=== PATIENT | male | born 1935 | race Caucasian/White ===

== ENCOUNTER 2017-12-21 11:36 | Emergency (ER) | payer SELFPAY ==
[2017-12-21] VITALS (8 sets, daily range): BP systolic 125–149; BP diastolic 57–87; PULSE 37–57; RESP 12–22; TEMP 36.3; O2SAT 93–98; BMI 23.6
[2017-12-21 12:20] LABS: Absolute Lymphocyte Count 1.17 X10^3/ul (0.83-4.51); Absolute Neutrophil Count 2.2 X10^3/uL (2.0-7.7); Basophil# 0.02 X10^3/uL; Basophil% 0.5 % (0-1); Eosinophil# 0.15 X10^3/uL; Eosinophils% 3.8 % (0-5); Hematocrit 42.9 % (40-54); Hemoglobin 14.8 g/dl (13.0-16.5); Lymphocyte # 1.17 X10^3/ul (4.0); Lymphocyte % 29.7 % (19-41); Mean Corp Hgb Conc 34.5 g/gl (32-36); Mean Corpuscular Hgb 31.8 pg (27.0-32.0); Mean Corpuscular Volume 92.3 fL (80-94); Mean Platelet Vol. 9.3 fl (6.2-12.0); Monocyte# 0.38 X10^3/uL; Monocyte% 9.6 % (0-10); Neutrophil # 2.22 X10^3/uL (2.7-7.7); Neutrophil % 56.4 % (47-70); Platelet Count 140 K/mm3 (150-450); RBC Distribution Width CV 12.8 % (11.6-14.6); RBC Distribution Width SD 42.6 fl (35.1-43.9); Red Blood Count 4.65 M/mm3 (4.6-6.2); White Blood Count 3.9 K/mm3 (4.4-11.0)
[2017-12-21 12:21] LABS: POSITIVE COUNT NO; POSITIVE DIFFERENTIAL NO; POSITIVE MORPHOLOGY NO
[2017-12-21 12:31] LABS: Anion Gap 9 (5-15); BUN 38 mg/dL (7-18); BUN/Creat Ratio 22.2 RATIO (10-20); Calcium,Total 9.2 mg/dL (8.5-10.1); Chloride 104 mmol/L (98-107); Creatinine, Serum 1.71 mg/dL (0.70-1.30); EST Glomerular Filtration Rate 41 mL/min (>60); Est Glom Filt Rate - Afr Amer 50 mL/min (>60); Estimated Creatinine Clearance 30.57 ml/min; Glucose 103 mg/dL (74-106); Potassium 3.9 mmol/L (3.5-5.1); Sodium Level 141 mmol/L (136-145)
--- NOTE | 2017-12-21 15:00 | NURSING ---
TALKED TO [facility]. WE ARE STILL WAITING ON A BED
--- NOTE | 2017-12-21 16:24 | ED.VIS.GEN ---
History of Present Illness Chief Complaint: Chest Other Informant: Patient, Family, PCP Onset: Weeks - 1 Context: Gradual Onset Timing: Continuous Quality: fatigue Location: all over Current Severity: Moderate Maximum Severity: Moderate Worsened by: exertion Relieved by: rest partially Associated Symptoms: mild S[place]IAGO, lightheadedness w/ exertion. no near-syncope or syncope. Narrative: Bradycardia and AV blockade seen on outpt EKG, sent for further evaluation. - Past Medical History (1) History of cardiac radiofrequency ablation Status: Chronic (2) Nonrheumatic mitral (valve) prolapse Status: Chronic (3) Nonrheumatic mitral valve regurgitation Status: Chronic (4) SVT (supraventricular tachycardia) Status: Chronic (5) Hypertension Status: Chronic Past Medical History - Allergies and Home Meds Allergies/Adverse Reactions: Allergies No Known Allergies Allergy (Verified 12/21/17 10:33) Primary Care Physician: Viry Sheikh [Primary Care Provider] - Lives: Spouse/ Significant Other Smoking Status: Never smoker Review of Systems All systems negative except as indicated General: Reports: Malaise - and fatigue Eyes: Denies: Blurred Vision - bilaterally, Diplopia Cardiovascular: Denies: Chest pain, Palpitations Respiratory: Reports: Dyspnea on exertion. Denies: Dyspnea, Cough, Orthopnea Gastrointestinal: Denies: Abdominal pain, Nausea, Vomiting Neurological: Reports: - - lightheadedness w/ exertion. Denies: Headache, Weakness, Parasthesia Physical Exam Vital Signs/Narrative: Vital Signs Pulse Resp BP Pulse Ox 12/21/17 15:28 42 L 22 H 140/67 H 93 12/21/17 14:37 44 L 16 149/65 H 95 12/21/17 13:37 57 L 16 139/66 H 93 12/21/17 12:37 40 L 12 147/67 H 94 Inital Vital Signs reviewed: Yes General: Well nourished, Well developed Head: Normocephalic, Atraumatic Eyes: Perrl, EOMI ENT: Moist mucous membranes, No rhinorrhea Neck: Supple, Nontender Cardiovascular: Regular rhythm, Bradycardia, Murmur - soft crescendo systolic Respiratory: No distress, CTA bilaterally, Chest nontender Abdomen: Soft, Nontender, Nondistended, Normal bowel sounds Back: Nontender, Normal Inspection Extremities: Nontender, No edema Skin: Normal color, No rash Neurological: Alert, Oriented x3, Cranial nerves II-XII grossly intact, Normal Strength, Normal Sensation Psychological: Normal affect Diagnostic/Tx/Re-eval Impressions Chest X-Ray 12/21/17 12:13 IMPRESSION: Mild degree of increased markings at the lung bases suggestive of basilar scarring. Electronically Signed: Hussain Cavazos MD at 13:44 EDT Tel [phone], Service support , 12/21/17 12:13 Chest PA and Lateral [RAD] Stat Laboratory Results 12/21/17 12/21/17 Range/Units 11:50 11:50 WBC 3.9 L (4.4-11.0) K/mm3 RBC 4.65 (4.6-6.2) M/mm3 Hgb 14.8 (13.0-16.5) g/dl Hct 42.9 (40-54) % MCV 92.3 (80-94) fL MCH 31.8 (27.0-32.0) pg MCHC 34.5 (32-36) g/gl RDW 12.8 (11.6-14.6) % RDW Differential 42.6 (35.1-43.9) fl Plt Count 140 L (150-450) K/mm3 MPV 9.3 (6.2-12.0) fl Immature Gran % (Auto) 0.000 (0.0-0.9) % Neut % (Auto) 56.4 (47-70) % Lymph % (Auto) 29.7 (19-41) % [place] % (Auto) 9.6 (0-10) % Eos % (Auto) 3.8 (0-5) % Baso % (Auto) 0.5 (0-1) % Absolute Neuts (auto) 2.2 (2.0-7.7) X10^3/uL Absolute Lymphs (auto) 1.17 (0.83-4.51) X10^3/ul Total Counted Not Reportable Sodium 141 (136-145) mmol/L Potassium 3.9 (3.5-5.1) mmol/L Chloride 104 (98-107) mmol/L Carbon Dioxide 28.0 (21.0-32.0) mmol/L Anion Gap 9 (5-15) BUN 38 H (7-18) mg/dL Creatinine 1.71 H (0.70-1.30) mg/dL Estim Creat Clear Calc 30.57 ml/min Est GFR (MDRD) Af Amer 50 L (>60) mL/min Est GFR (MDRD) Non-Af 41 L (>60) mL/min BUN/Creatinine Ratio 22.2 H (10-20) RATIO Glucose 103 (74-106) mg/dL Calcium 9.2 (8.5-10.1) mg/dL - Rhythm Strip Rhythm Strip: sinus bradycardia Rate: 40 Ectopy: None - EKG Initial EKG Interpretation: Sinus Bradycardia, AV Block - Mobitz II w/ 2:1 conduction, - - evaluated EKG is the outpt EKG that was brought w/ the pt from today - Medical Decision Making Patient having symptomatic bradycardia, and given the high grade block, will need evaluation for pacemaker placement. He is on blood pressure medications but no AV nell blockers. He is monitored in the ER, his blood pressure and clinical status are stable. We are awaiting a bed to become available at [facility], we have a talent solutions manager who places pacemakers here but he is away on vacation for the week so we do not have that ability at this facility at this time. 1740 --his blood pressure and clinical status have remained stable throughout his monitoring, currently his heart rate is 37 and his blood pressure is 125/62. We received notification that he is accepted by Dr. Guzman, to [facility]. The patient refuses to go by ambulance and once to go on his own. He understands the risks and is willing to accept those risks in transporting himself. Family member will take him. ED Disposition - Plan for ED Patient: Disposition: [facility] Chief Complaint: Chest Other Diagnosis: Mobitz (type) II atrioventricular block, Symptomatic bradycardia Referrals: Viry Sheikh [Primary Care Provider] -
--- NOTE | 2017-12-21 17:36 | NURSING ---
report given to Lakeshia at [facility]
== END 2017-12-21 18:00 | disposition short-term general hospital (02) ==
PROVIDERS: Emergency Provider Emergency Medicine; Family Provider Internal Medicine Infectious Disease; PCP Internal Medicine Infectious Disease
DX: I44.1 Atrioventricular block, second degree (principal); R00.1 Bradycardia, unspecified; I34.1 Nonrheumatic mitral (valve) prolapse; I34.0 Nonrheumatic mitral (valve) insufficiency; I47.1 Supraventricular tachycardia; I10 Essential (primary) hypertension
CPT/HCPCS: 71046; 80048; 85025; 99285; A4216

== ENCOUNTER 2020-04-07 06:01 | Observation (INO) | payer OTHER, SELFPAY ==
[2019-11-28 16:07] VITALS: BMI 23.4
[2020-04-07] VITALS (7 sets, daily range): BP systolic 108–176; BP diastolic 64–101; PULSE 62–87; RESP 17–22; TEMP 36.4–36.6; O2SAT 94–98; BMI 23.8; BMI 23.1
--- NOTE | 2020-04-07 06:02 | ED.RN ---
CALLED FOR EKG PER RN REQUEST, NO OLD EKGS IN MUSE
--- NOTE | 2020-04-07 06:10 | EKG12_ITS ---
Test Reason : CP ADMIT Blood Pressure : / mmHG Vent. Rate : 070 BPM Atrial Rate : 070 BPM P-R Int : 194 ms QRS Dur : 160 ms QT Int : 476 ms P-R-T Axes : 062 -72 063 degrees QTc Int : 514 ms Atrial-sensed ventricular-paced rhythm Abnormal ECG Confirmed by SAY MCMAHON, VIVIAN ([id number]), movie editor JILLIAN COX ([id number]) on 04/09/2020 8:27:57 AM Referred By: ARMIN Confirmed By:VIVIAN DEAL MD
--- NOTE | 2020-04-07 06:10 | RAD_ITS ---
STUDY: X-RAY CHEST REASON FOR EXAM: Male, 85 years old patient with chest pain worse with deep inspirations. TECHNIQUE: Single AP portable view of the chest. COMPARISON: 12/21/2017. FINDINGS: Left-sided intracardiac pacemaker is present. Cardiac monitoring leads are present. The lungs are clear and expanded. There is mild elevation of the right hemidiaphragm. There is no demonstrated pleural abnormality. There is borderline cardiomegaly. Normal mediastinum and marbella. There is prominence of the pulmonary hilar arteries without peripheral pulmonary vascular congestion. There is atherosclerotic calcification of the aortic arch with tortuosity. There is demineralization of the osseous structures. The patient has had partial resection of the distal right clavicle. There are postoperative changes of the right humerus. Both humeri are high riding with decreased acromiohumeral distances suggesting sequela of chronic rotator cuff tears. There is no demonstrated abnormality of the visualized soft tissue structures of the upper abdomen. RAD/Chest 1 View (Portable) IMPRESSION: No radiographic evidence of acute cardiopulmonary disease. Electronically Signed: Verito Pearce MD at 6:54 EST , Service support ,
[2020-04-07 06:16] LABS: Absolute Lymphocyte Count 1.36 X10^3/uL (0.83-4.51); Absolute Neutrophil Count 1.9 X10^3/uL (2.0-7.7); Basophil# 0.02 X10^3/uL; Basophil% 0.5 % (0-1); Eosinophil# 0.13 X10^3/uL; Eosinophils% 3.4 % (0-5); Hematocrit 45.6 % (40-54); Hemoglobin 15.7 g/dL (13.0-16.5); Lymphocyte # 1.36 X10^3/ul (4.0); Lymphocyte % 35.2 % (19-41); Mean Corp Hgb Conc 34.4 g/dL (32-36); Mean Corpuscular Hgb 31.5 pg (27.0-32.0); Mean Corpuscular Volume 91.6 fL (80-94); Mean Platelet Vol. 8.9 fl (6.2-12.0); Monocyte# 0.47 X10^3/uL; Monocyte% 12.2 % (0-10); NRBC Flagged by Analyzer 0 % (0-5); Neutrophil # 1.87 X10^3/uL (2.7-7.7); Neutrophil % 48.4 % (47-70); Platelet Count 131 K/mm3 (150-450); RBC Distribution Width CV 12.4 % (11.6-14.6); RBC Distribution Width SD 41.4 fl (35.1-43.9); Red Blood Count 4.98 M/mm3 (4.6-6.2); White Blood Count 3.9 K/mm3 (4.4-11.0)
--- NOTE | 2020-04-07 06:17 | ED.DCSUM_ITS ---
History of Present Illness Chief Complaint: Chest Pain Informant: Patient Onset: Today Context: Gradual Onset Timing: Continuous Current Severity: Moderate Maximum Severity: Moderate Narrative: Patient is an 85-year-old male with medical history significant for hypertension, SVT status post ablation, and permanent pacemaker who presents to the emergency department chest pain. Patient states that his symptoms began this morning. He states it woke him from sleep. He describes a burning type pain in his epigastric area up into his chest. He denies any nausea or vo miting. He denies any shortness of breath. He states he is never really had pain like this before. He has no history of coronary vascular disease. He denies any recent exertional symptoms. He states he is otherwise been in his normal state of health. Patient has had prior cholecystectomy. He denies fevers or chills. Prior similar symptoms: No Recent Illness/Hospitalization: No Past Medical History - Allergies and Home Meds Allergies/Adverse Reactions: Allergies No Known Allergies Allergy (Verified 11/28/19 16:10) Primary Care Physician: Viry Sheikh MD [Primary Care Provider] - Prior records reviewed: Yes Past Medical History: - - Hypertension, SVT status post ablation, pacemaker Surgical History: cholecystectomy Smoking Status: Never smoker Review of Systems General: Denies: Chills, Fever, Sweats Eyes: Denies: Visual changes - bilaterally, Diplopia ENT: Denies: Rhinorrhea, Sore throat Cardiovascular: Reports: Chest pain. Denies: Palpitations Respiratory: Denies: Dyspnea, Cough, Dyspnea on exertion Gastrointestinal: Reports: Nausea. Denies: Abdominal pain, Vomiting, Diarrhea, Melena, Hematochezia Genitourinary: Denies: Dysuria, Hematuria, Frequency Musculoskeletal: Denies: Back pain, Extremity Pain Skin: Denies: Rash, Wounds Neurological: Denies: Headache, Weakness, Numbness Physical Exam Vital Signs/Narrative: Vital Signs Temp Pulse Resp BP Pulse Ox 04/07/20 06:03 176/101 H 04/07/20 06:01 97.8 F 87 22 H 97 Inital Vital Signs reviewed: Yes General: Well nourished, Well developed, No Acute Distress Head: Normocephalic, Atraumatic Eyes: Perrl, EOMI ENT: Moist mucous membranes, No rhinorrhea Neck: Supple, Nontender Cardiovascular: Regular rate, Regular rhythm, No murmurs Respiratory: No distress, CTA bilaterally, Chest nontender Abdomen: Soft, Nondistended, Normal bowel sounds, Tender. Negative for: Guarding, Rebound tenderness Back: Nontender, Normal Inspection Extremities: Nontender, No edema Skin: Normal color, No rash Neurological: Alert, Oriented x3, Cranial nerves II-XII grossly intact, Normal Strength, Normal Sensation Psychological: Normal affect, Normal Mood Diagnostic/Tx/Re-eval - Rhythm Strip Rhythm Strip: Paced Rate: 80 Ectopy: PVC(s) - EKG Initial EKG Interpretation: No Acute Injury Pattern, Paced Prior: Unchanged - Medical Decision Making EKG was obtained on patient arrival. Was a paced rhythm at a rate of 70. There was no definitive acute ischemia. The patient does have some pain in his midepigastric area. He also has some mild distention. I am not sure if his pain is actually cardiac versus GI in nature. Broad metabolic work-up was pursued. Screening labs were obtained. The patient will undergo CTA of the chest given the pleuritic component of his pain and also obtain imaging of the abdomen given his distention. This will be signed out to oncoming physician after completion of imaging and final disposition. Impression 1. Chest pain ED Disposition - Plan for ED Patient: Referrals: Viry Sheikh MD [Primary Care Provider] -
[2020-04-07] MEDS: Ondansetron 4 MG/2 ML Vial IV (06:24)
[2020-04-07] MEDS: Morphine 2 MG/ML Syringe IV (06:24)
--- NOTE | 2020-04-07 06:29 | CT_ITS ---
STUDY: CTA CHEST REASON FOR EXAM: Male, 85 years old. CP, DYSPNEA, PLEURITIC PAIN, EPIGASTRIC PAIN, PAIN STARTED AT 4 AM, HX-HTN, LOY, PACER RADIATION DOSAGE (If Supplied By Facility): CTDIvol = ( 13.48 ) mGy, DLP = ( 1095.27 ) mGycm TECHNIQUE: The examination was performed with the intravenous administration of IV 100mL Isovue-370. Post-processing of the angiographic images was performed, with multiplanar reformation and 3D reconstruction. Individualized dose optimization techniques were used for this CT. COMPARISON: None. FINDINGS: Normal enhancement of the main pulmonary artery and right and left pulmonary arteries. Normal enhancement of the bilateral peripheral pulmonary arteries. There is no demonstrated pulmonary embolism. Normal thoracic aorta and visualized great vessels. There is no demonstrated aortic dissection. Normal heart and pericardium. Normal mediastinum. Normal hilar regions. Normal visualized trachea and bronchi. The lungs are hyper expanded, with flattening of the hemidiaphragms. There is dependent atelectasis in the lung bases. Normal pleura. Normal chest wall structures. Normal osseous structures. There is small hiatal hernia. CT/CTA Chest W/WO Contrast IMPRESSION: No demonstrated pulmonary embolism or arterial dissection. Small hiatal hernia. Electronically Signed: Rafi Bedolla, at 7:41 EST Tel , Service support ,
--- NOTE | 2020-04-07 06:30 | CT_ITS ---
STUDY: CT ABDOMEN AND PELVIS WITH CONTRAST REASON FOR EXAM: Male, 85 years old. CP, DYSPNEA, PLEURITIC PAIN, EPIGASTRIC PAIN, PAIN STARTED AT 4 AM, HX-HTN, LOY, PACER RADIATION DOSAGE (If Supplied By Facility): CTDIvol = ( 13.48 ) mGy, DLP = ( 1095.27 ) mGycm TECHNIQUE: Transaxial images were obtained from the dome of the diaphragm to the symphysis pubis without oral contrast. IV 100mL Isovue-370 was administered. Sagittal and coronal images were reconstructed. Individualized dose optimization techniques were used for this CT. COMPARISON: None. FINDINGS: There is atelectasis in the visualized lung bases bilaterally, greatest posteriorly. The visualized portions of the heart are within normal limits. There are pacemaker wires. Normal liver. The gallbladder is nonvisualized, consistent with given history of cholecystectomy. Normal spleen. Normal pancreas. Normal bilateral adrenal glands. The kidneys are enlarged and there are numerous renal cysts which replace most of the renal parenchyma bilaterally. Findings are consistent with polycystic kidney disease. There is a 1.1 cm collection of nonobstructive right upper pole renal calculi versus parenchymal calcification. There is no demonstrated ureteral calculus or hydronephrosis. There is a small hiatal hernia. Assessment of the stomach is otherwise limited by nondistention.. Normal small intestine. There are multiple colonic diverticula consistent with diverticulosis. The appendix is visualized medial and posterior to the cecum on axial images 76-83 and it appears normal.. There is atherosclerotic calcification of the abdominal aorta, without a demonstrated aneurysm. Normal inferior vena cava. Normal retroperitoneum. The prostate gland is enlarged and indents the base of the urinary bladder. There are subcentimeter left posterolateral urinary bladder diverticula Normal abdominal wall. There are diffuse degenerative changes of the visualized lumbar spine. There is grade 1 anterolisthesis L4-5, on a degenerative basis. CT/Abdomen/Pelvis W IV Cont ONLY IMPRESSION: Polycystic kidney disease. Questionable finding of a collection of small nonobstructive right upper pole renal A versus parenchymal calcifications. No demonstrated ureteral calculi or hydronephrosis. Small hiatal hernia. Colonic diverticulosis, without evidence for acute diverticulitis. Atherosclerosis. Enlarged prostate. Small urinary bladder diverticula. Previous cholecystectomy. No evidence for appendicitis. No evidence for bowel obstruction or ileus. Electronically Signed: Kendrick De Los Santos MD at 7:27 EST , Service support ,
[2020-04-07 06:38] LABS: AST(SGOT) 22 U/L (15-37); Alanine Aminotransfer ALT/SGPT 25 U/L (16-61); Albumin, Serum 3.7 g/dL (3.2-5.0); Alkaline Phosphatase 87 U/L (45-117); Anion Gap 6 (5-15); BUN 43 mg/dL (7-18); BUN/Creat Ratio 25.1 RATIO (10-20); Calcium,Total 9.5 mg/dL (8.5-10.1); Chloride 106 mmol/L (98-107); Creatinine, Serum 1.71 mg/dL (0.70-1.30); EST Glomerular Filtration Rate 41 mL/min (>60); Est Glom Filt Rate - Afr Amer 49 mL/min (>60); Estimated Creatinine Clearance 29.02 ml/min; Globulin 3.6 g/dL (2.2-4.2); Glucose 108 mg/dL (74-106); Lipase 232 U/L (73-393); Potassium 3.6 mmol/L (3.5-5.1); Protein, Total 7.3 g/dL (6.4-8.2); Sodium Level 143 mmol/L (136-145)
--- NOTE | 2020-04-07 07:00 | ED.RN ---
UPDATED DAUGHTER WITH RESULTS AND POC.
--- NOTE | 2020-04-07 07:57 | ED.RN ---
DR. BOOGIE ON PHONE WITH DAUGHTER RANDY UPDATING ABOUT CONDITION AND ADMISSION
--- NOTE | 2020-04-07 08:04 | HP.PCM_ITS ---
History of Present Illness Date of Admission: 04/07/20 Chief Complaint: CHEST PAIN The patient is an 85 year old M with a PMH as outlined who was admitted with a complaint of chest pain. Chest pain started in the early hours of the morning, and was retrosternal, pressure like, aggravated by breathing in and out, and with no relieving factors. He doesnt remember having chest pain like this in the past. He denied any lightheadedness, dizziness, nausea, vomiting, shortness of breath, abdominal pain or diarrhea. Review of systems is otherwise negative. Denies any history of previous heart disease and states he has a pacemaker in place also has a history of hypertension and SVT s/p ablation. On admission, vitals showed temperature of 97.7 Fahrenheit with blood pressure of 108/64, pulse rate of 61 respiratory of 18. Was saturating at 94% on room air. CTA of the chest was negative for any PE or arterial dissection and showed a small hiatal hernia. CT of the abdomen showed polycystic kidney disease and no evidence of ureteral calculi or hydronephrosis and showed small hiatal hernia with colonic diverticulosis with no evidence of acute diverticulitis. Chest x- ray showed no cute cardiopulmonary process. [] Past Medical History Past Medical History (Chronic Problems): Chronic Problems (Last Reviewed 11/28/19 @ 16:12 by Lakeshia Bhagat) Essential hypertension (Chronic) Complete AV block (Chronic) Presence of cardiac pacemaker (Chronic) History of cardiac radiofrequency ablation (Chronic ~12/18/13) For SVT 12/18/13 Palpitations (Chronic) SVT (supraventricular tachycardia) (Chronic) Premature ventricular contraction (Chronic) Cardiac murmur (Chronic) Nonrheumatic mitral (valve) prolapse (Chronic) Nonrheumatic mitral valve regurgitation (Chronic) Medical History: Medical History (Last Reviewed 11/28/19 @ 16:12 by Lakeshia Bhagat) Essential hypertension (Chronic) I10 Complete AV block (Chronic) I44.2 Presence of cardiac pacemaker (Chronic) Z95.0 Palpitations (Chronic) R00.2 SVT (supraventricular tachycardia) (Chronic) I47.1 Premature ventricular contraction (Chronic) I49.3 Cardiac murmur (Chronic) R01.1 Nonrheumatic mitral (valve) prolapse (Chronic) I34.1 Nonrheumatic mitral valve regurgitation (Chronic) I34.0 Hypothyroidism E03.9 BPH (benign prostatic hyperplasia) N40.0 Fatigue (Resolved) R53.83 GI bleed K92.2 Allergies No Known Allergies Allergy (Verified 11/28/19 16:10) Home Medications: Ambulatory Orders Medication Instructions Recorded amlodipine 10 mg tablet 10 mg PO QDAY 05/08/17 aspirin 81 mg tablet,delayed 81 mg PO QDAY 05/08/17 release hydrochlorothiazide 25 mg tablet 25 mg PO QDAY 05/08/17 lactobacillus combination no.8 3 3,000 mmu cells PO BID cap 05/08/17 billion cell capsule omeprazole 20 mg capsule,delayed 20 mg PO QDAY 05/08/17 release tamsulosin 0.4 mg capsule 0.4 mg PO QDAY 05/08/17 magnesium 200 mg tablet 200 mg PO BID tab 05/14/18 zaleplon 5 mg capsule 5 mg PO QHS PRN cap 05/14/18 Surgical History: Surgical History (Last Reviewed 11/28/19 @ 16:12 by Lakeshia Bhagat) History of bilateral cataract extraction Z98.41, Z98.42 History of cholecystectomy Z98.890, Z90.49 History of herniorrhaphy Z98.890, Z87.19 History of inguinal hernia repair Z98.890, Z87.19 History of repair of rotator cuff Z98.890 Surgical History: cholecystectomy Smoking Status: Never smoker Review of Systems Constitutional: Denies: Chills, Fever, Malaise, Weakness, Weight Change Eyes: Denies: Blurred vision HEENT: Denies: Head Aches, Sinus Congestion, Sinus Drainage Cardiovascular: Reports: Chest Pain. Denies: Chest Pressure, Chest Tightness, Edema, Heaviness, Light Headedness, Orthopnea, Palpitations, Paroxysmal Noc. Dyspnea, Syncope Respiratory: Reports: Pleuritic Pain. Denies: Cough, Shortness of breath at rest, Shortness of breath upon exertion, Sputum production Gastrointestinal: Denies: Abdominal Pain, Nausea, Vomiting Genitourinary: Denies: Dysuria Musculoskeletal: Denies: Joint Pain, Joint Tenderness Skin: Denies: Rash, Wounds Neurological: Denies: Numbness, Tingling, Focal weakness Psychiatric: Denies: Anxiety, Depression, Homicidal Ideations, Suicidal Ideations Hematologic/ Lymphatic: Denies: Easy Bruising, Easy Bleeding VTE Information - Inpt Only VTE Present on Admission: No VTE Pharm Prophylaxis ordered?: Yes - Physical Exam Vitals/I&O's: Vital Signs Temp Pulse Resp BP Pulse Ox 97.8 F 67 17 149/90 H 97 04/07/20 06:01 04/07/20 06:40 04/07/20 06:40 04/07/20 06:40 04/07/20 06:01 Oxygen Delivery Method Room Air Weight: 147 lb 4.301 oz Body Mass Index (BMI) 23.8 General: Alert, Oriented x3, Cooperative, No apparent distress HEENT: Atraumatic, PERRLA, EOMI, Normocephalic Oral: Dry Mucosa Neck: Supple, No JVD, Negative Carotid Bruits Lungs: Clear to auscultation, Normal air movement, No rhonchi, No wheeze Cardiovascular: Regular rate, Regular Rhythm, Normal S1, Normal S2, No murmurs Abdomen: Bowel Sounds Present, Soft, Non Tender, Non-Distended, No Hepato- splenomegaly Extremities: No clubbing, No cyanosis, No edema, Capillary Refill Less than 3 Seconds Skin: No rashes, No breakdown Musculoskeletal: No Tenderness to Palpation of Joints or Extremities Lymphatic: No Cervical, Supraclavicular, or Inguinal Adenopathy Neurological: Cranial nerves II-XII grossly intact, Neuro grossly intact, Motor Exam 5/5 strength throughout Psych/Mental Status: Normal Affect, Appropriate, Alert and oriented to time, place, person, mood and affect Laboratory Results 04/07/20 06:05: WBC 3.9 L, RBC 4.98, Hgb 15.7, Hct 45.6, MCV 91.6, MCH 31.5, MCHC 34.4, RDW Std Deviation 41.4, RDW Coeff of Saloni 12.4, Plt Count 131 L, MPV 8.9, Immature Gran % (Auto) 0.300, Neut % (Auto) 48.4, Lymph % (Auto) 35.2, [place] % (Auto) 12.2 H, Eos % (Auto) 3.4, Baso % (Auto) 0.5, Absolute Neuts (auto) 1.9 L, Absolute Lymphs (auto) 1.36, Nucleated RBC % 0 04/07/20 06:05: Sodium 143, Potassium 3.6, Chloride 106, Carbon Dioxide 31.0, Anion Gap 6, BUN 43 H, Creatinine 1.71 H, Estim Creat Clear Calc 29.02, Est GFR (MDRD) Af Amer 49 L, Est GFR (MDRD) Non-Af 41 L, BUN/Creatinine Ratio 25.1 H, Glucose 108 H, Calcium 9.5, Total Bilirubin 0.60, AST 22, ALT 25, Alkaline Phosphatase 87, Troponin I < 0.015, Total Protein 7.3, Albumin 3.7, Globulin 3.6, Albumin/Globulin Ratio 1.0, Lipase 232 Diagnostic Data Chest X-Ray 04/07/20 06:10 IMPRESSION: No radiographic evidence of acute cardiopulmonary disease. Electronically Signed: Verito Pearce MD at 6:54 EST , Service support , Chest CTA 04/07/20 06:29 IMPRESSION: No demonstrated pulmonary embolism or arterial dissection. Small hiatal hernia. Electronically Signed: Rafi Bedolla at 7:41 EST Tel , Service support , Abdomen/Pelvis CT 04/07/20 06:30 IMPRESSION: Polycystic kidney disease. Questionable finding of a collection of small nonobstructive right upper pole renal A versus parenchymal calcifications. No demonstrated ureteral calculi or hydronephrosis. Small hiatal hernia. Colonic diverticulosis, without evidence for acute diverticulitis. Atherosclerosis. Enlarged prostate. Small urinary bladder diverticula. Previous cholecystectomy. No evidence for appendicitis. No evidence for bowel obstruction or ileus. Electronically Signed: Kendrick De Los Santos MD at 7:27 EST , Service support , Assessment/Plan All Active Problems (Last Reviewed 11/28/19 @ 16:12 by Lakeshia Bhagat) Fatigue (Resolved) 85-year-old admitted with a complaint of chest pain #Chest Pain rule out ACS * CTA negative for PE * troponins x 2 were negative * stress test ordered today was negative for any evidence of ischemia * Sl nitroglycerin prn. PO aspirin 81mg daily * Start hypertension: On amlodipine and hydrochlorothiazide. #BPH: On Flomax #History of SVT: S/p ablation. Stable. Currently has pacemaker in place. #DVT Prophylaxis: Lovenox Disposition: Patient to be discharged home today as stress test done was negative and chest pain is likely noncardiac. This note serves as an H&P and discharge summary. OBSV E&M: [id number] Observ/hosp same date L3
--- NOTE | 2020-04-07 08:13 | NURSING ---
Aron FUNEZ CP
--- NOTE | 2020-04-07 08:51 | PCS.PANDOC ---
PANDEMIC DOCUMENTATION INITIATED: Date: 04/07/20 Time: 844
--- NOTE | 2020-04-07 08:58 | EKG12_ITS ---
Test Reason : CHEST PAIN Blood Pressure : / mmHG Vent. Rate : 070 BPM Atrial Rate : 070 BPM P-R Int : 192 ms QRS Dur : 166 ms QT Int : 460 ms P-R-T Axes : 071 -73 076 degrees QTc Int : 496 ms Atrial-sensed ventricular-paced rhythm Abnormal ECG Confirmed by CLEOPATRA MCMAHON, ASAD ([id number]), health editor EDUIN LAIRD ([id number]) on 04/15/2020 10:17:04 AM Referred By: ELIJAH Confirmed By:ANEESH WHELAN MD
[2020-04-07] MEDS: Nitroglycerin (INPATIENT USE) 0.4 MG TAB.SUBL SUBLINGUAL (09:18)
[2020-04-07] MEDS: amLODIPine 10 MG Tablet PO (11:37)
[2020-04-07] MEDS: Pantoprazole Sodium 20 MG Tablet PO (11:37)
[2020-04-07] MEDS: hydroCHLOROthiazide 25 MG Tablet PO (11:37)
[2020-04-07] MEDS: Magnesium Chloride 64 MG Delay Rel.Tablet PO (11:38)
--- NOTE | 2020-04-07 11:39 | STRESSREP_ITS ---
Stress Test Report Date: 04-07-2020 Procedure: Pharmacologic stress nuclear imaging study Indications: Chest pain; SVT; status post EPS/RFA; conduction system abnormality; status post PPM Consent: Per the patient Procedure: The patient underwent pharmacologic (Regadenoson) evaluation with a peak heart rate of 105 beats per minute (77%predicted maximal heart rate) and a peak blood pressure of 138/66 mmHg. The baseline ECG demonstrated electronic ventricular paced rhythm. The peak pharmacologic ECG demonstrated no obvious ECG changes. There were no cardiac dysrhythmias pretest, during pharmacologic infusion, or recovery. The patient noted chest discomfort pretest, during the evaluation, and during recovery without significant change. The examination was discontinued secondary to completion of protocol. Impression: 1. Pharmacologic (Regadenoson) evaluation 2. Peak pharmacologic ECG with continued electronic ventricular pacemaker. 3. There were no cardiac dysrhythmias pretest, during pharmacologic infusion, or recovery. 4. Nuclear images pending Myocardial perfusion imaging study: Technique: The patient was injected with 11.1 millicuries of technetium 99m Cardiolite and subsequently rest SPECT Cardiolite nuclear imaging was obtained in the horizontal long, vertical long, and short axis views. The patient underwent pharmacologic (Regadenoson) evaluation with a peak heart rate of 105 beats per minute (77% percent predicted maximal heart rate) and a peak blood pressure of 138/66 mmHg. The patient was injected with 33.7 millicuries of technetium 99m Cardiolite and subsequently stress SPECT Cardiolite nuclear imaging was obtained in the horizontal long, vertical long, and short axis views. A gated Cardiolite study at peak stress was obtained. Interpretation: Rest and stress SPECT Cardiolite nuclear imaging status post realignment, normalization, and attenuation correction demonstrate relative uniform tracer uptake and myocardial perfusion appearing within normal limits. There is end systolic thickening and brightening. The gated Cardiolite study demonstrates myocardial thickening and inward wall motion. The reported LVEF is 73%. Impression: 1. Rest and stress SPECT Cardiolite nuclear imaging demonstrate relative uniform tracer uptake and myocardial perfusion appearing within normal limits. 2. The gated Cardiolite study reports an LVEF of 73%. This note was generated with [employer] software. It may contain incorrect words, spelling, and punctuation that were not noted in checking the note before signing.
--- NOTE | 2020-04-07 12:27 | PCM.DC ---
You will use the following diet at home:: Cardiac Your food should be the consistency of: Regular Your liquids should be the consistency of: Regular/Thin Discharge Activity: Return to Normal Activity Weight Bearing Status: Weight bearing as tolerated Call your doctor if you observe: Fever of 101 or Higher, Shortness of breath, Dizziness, Fainting spells, Swelling in the ankles, Chest pain, Uncontrolled pain Instructions: ED Chest Pain, Noncardiac Allergies/Adverse Reactions: Allergies No Known Allergies Allergy (Verified 11/28/19 16:10) Medications to take at Discharge amlodipine 10 mg tablet 10 mg PO QDAY 05/08/17 aspirin 81 mg tablet,delayed release 81 mg PO QDAY 05/08/17 hydrochlorothiazide 25 mg tablet 25 mg PO QDAY 05/08/17 lactobacillus combination no.8 3 billion cell capsule 3,000 mmu cells PO BID cap 05/08/17 omeprazole 20 mg capsule,delayed release 20 mg PO QDAY 05/08/17 tamsulosin 0.4 mg capsule 0.4 mg PO QDAY 05/08/17 magnesium 200 mg tablet 200 mg PO BID tab 05/14/18 zaleplon 5 mg capsule 5 mg PO QHS PRN cap 05/14/18 Nitroglycerin 0.4 mg SL Q5M PRN #25 tab.sl 04/07/20 The following prescriptions were given: Nitroglycerin 0.4 mg SL Q5M PRN #25 tab.sl PRN Reason: Cardiac/Chest Pain Transmission Status: Pending to [facility] Primary Care Physician: Viry Sheikh MD [Primary Care Provider] - Please follow up with your Primary Care Physician in: 1-2 weeks Test Results: Test results from this visit will be discussed in further detail at your follow-up appointment, if applicable. Proposed Discharge Date: 04/07/20
--- NOTE | 2020-04-07 14:35 | PHA.DC.MR ---
Pharmacy Service has performed discharge medication reconciliation for this patient. The patient's discharge medication list was reviewed for discrepancies and discrepancies were resolved. Home Medications amlodipine 10 mg tablet 10 mg PO QDAY 05/08/17 aspirin 81 mg tablet,delayed release 81 mg PO QDAY 05/08/17 hydrochlorothiazide 25 mg tablet 25 mg PO QDAY 05/08/17 lactobacillus combination no.8 3 billion cell capsule 3,000 mmu cells PO BID cap 05/08/17 omeprazole 20 mg capsule,delayed release 20 mg PO QDAY 05/08/17 tamsulosin 0.4 mg capsule 0.4 mg PO QDAY 05/08/17 magnesium 200 mg tablet 200 mg PO BID tab 05/14/18 zaleplon 5 mg capsule 5 mg PO QHS PRN cap 05/14/18 Nitroglycerin 0.4 mg SL Q5M PRN #25 tab.sl 04/07/20
== END 2020-04-07 12:33 | disposition home or self-care (01) ==
LOC: ED 06:18 → PCU 08:15
PROVIDERS: Admitting Provider Student in an Organized Health Care Education/Training Program; Emergency Provider Emergency Medicine; PCP Internal Medicine Infectious Disease; Visit Provider Student in an Organized Health Care Education/Training Program
DX: R07.9 Chest pain, unspecified (principal); I10 Essential (primary) hypertension; N40.0 Benign prostatic hyperplasia without lower urinary tract symptoms; Z95.0 Presence of cardiac pacemaker; I47.1 Supraventricular tachycardia; Z79.899 Other long term (current) drug therapy; Z79.82 Long term (current) use of aspirin; Q61.3 Polycystic kidney, unspecified; K44.9 Diaphragmatic hernia without obstruction or gangrene
CPT/HCPCS: 36415; 71045; 71275; 74177; 78452; 80053; 83690; 83880; 84484; 85025; 85379; 93005; 93017; 96374; 96375; 99285; A9500; Q9967; A4216; J2405; J2785

== ENCOUNTER → 2020-08-28 15:09 | Outpatient (CLI) | payer SELFPAY ==
[2020-07-23 15:35] VITALS: BMI 23.7
--- NOTE | 2020-08-28 15:13 | ECHOD_ITS ---
Reason For Study: Murmur Procedure This was a 2D Doppler, Color Flow transthoracic echocardiogram. The study was technically difficult. Exam performed in department. Left Ventricle Normal LV size. Sigmoid septum. Left ventricular systolic function is normal. The estimated ejection fraction is 70 %. No evidence for diastolic dysfunction. No regional wall motion abnormalities noted. Right Ventricle Normal RV size. ICD or pacer leads identified within the right ventricle. Normal systolic function. Atria The left atrium is mildly enlarged. Normal right atrium. ICD or pacer leads identified within the right atrium. No doppler evidence for ASD. Mitral Valve There is no mitral annular calcification. Equivocal mitral valve prolapse. Mild (1+) mitral valve insufficiency. Tricuspid Valve Normal tricuspid valve. Mild tricuspid valve insufficiency. Right ventricular systolic pressure estimated to be 29 mmHg. Aortic Valve Trisinus/trileaflet aortic valve. Mild diffuse aortic valve calcification. Mild aortic stenosis. Pulmonic Valve The pulmonic valve is not well visualized. Trivial pulmonic valve insufficiency. Great Vessels Normal sized aortic root. Pericardium/Pleural Trivial pericardial effusion. There are no echocardiographic indications of cardiac tamponade. MMode/2D Measurements & Calculations LVIDd: 3.9 cm IVSd: 1.4 cm LVOT diam: 2.3 cm LVIDs: 2.4 cm LVPWd: 1.1 cm LVOT area: 4.3 cm2 FS: 38.1 % LA dimension: 4.2 cm LAV(MOD-bp): 47.4 ml LA A4 area: 17.2 cm2 LAV(MOD-bp) Indexed: 27.0 ml/m2 LAV(MOD-sp2): 44.7 ml LAV(MOD-sp4): 47.8 ml RA A4 area: 14.4 cm2 Time Measurements MV dec time: 0.19 sec Doppler Measurements & Calculations MV E max mohsen: 49.1 cm/sec Lat Peak E' Mohsen: 8.9 cm/sec Med Peak E' Mohsen: 7.6 cm/sec MV A max mohsen: 92.1 cm/sec E/E' lat: 5.5 E/E' med: 6.4 MV E/A: 0.53 MV V2 max: 124.6 cm/sec MV P1/2t max mohsen: 66.1 cm/sec Ao V2 max: 212.4 cm/sec MV max P.2 mmHg MV P1/2t: 63.7 msec Ao max P.1 mmHg MV V2 mean: 61.8 cm/sec MV dec slope: 304.2 cm/sec2 Ao V2 mean: 137.8 cm/sec MV mean P.9 mmHg Ao mean P.9 mmHg MV V2 VTI: 19.9 cm MVA(P1/2t): 3.5 cm2 Ao V2 VTI: 41.5 cm MVA(VTI): 3.6 cm2 JIMMY(I,D): 1.7 cm2 JIMMY(V,D): 1.8 cm2 LV V1 max: 89.6 cm/sec SV(LVOT): 72.3 ml PA V2 max: 84.1 cm/sec LV V1 max P.2 mmHg LV V1 mean P.6 mmHg LV V1 mean: 57.8 cm/sec LV V1 VTI: 17.0 cm TR max mohsen: 255.0 cm/sec TR max P.0 mmHg ECHO/Echo Complete Interpretation Summary Left ventricular systolic function is normal. The estimated ejection fraction is 70 %. Sigmoid septum. The left atrium is mildly enlarged. Equivocal mitral valve prolapse. Mild (1+) mitral valve insufficiency. Mild tricuspid valve insufficiency. Mild aortic stenosis. Trivial pulmonic valve insufficiency. Trivial pericardial effusion. There are no echocardiographic indications of cardiac tamponade. Right ventricular systolic pressure estimated to be 29 mmHg. No evidence for diastolic dysfunction. ICD or pacer leads identified within the right atrium ICD or pacer leads identified within the right ventricle. Ordering Physician: Harjeet Paul Referring Physician: Harjeet Paul Performed By: Ivan Viveros RCS
== END ==
PROVIDERS: Referring Provider Internal Medicine Cardiovascular Disease; Visit Provider Internal Medicine Cardiovascular Disease
DX: R01.1 Cardiac murmur, unspecified (principal); I35.0 Nonrheumatic aortic (valve) stenosis; I34.1 Nonrheumatic mitral (valve) prolapse; I34.0 Nonrheumatic mitral (valve) insufficiency
CPT/HCPCS: 93306